=== PATIENT | male | born 1950 | race Caucasian/White ===

== ENCOUNTER 2025-03-05 06:00 | Day surgery (SDC) | payer OTHER ==
[2025-03-01 12:46] VITALS: BP 145/80
[~2025-03-05] VITALS: Ht 165.1 cm; Wt 73.9 kg
[~2025-03-05 06:00] MED LIST: AVAPRO300 MG PO; CARDURA XL4 MG PO; VERELAN PM300 MG
[2025-03-05] MEDS ORDERED: CEFTRIAXONE SODIUM 2,000 MG VIAL ONE (08:19)
[2025-03-05] MEDS ORDERED: METRONIDAZOLE/SODIUM CHLORIDE 500 MG/100 ML PIGGYBACK IV ONE (08:20)
[2025-03-05] MEDS ORDERED: POVIDONE-IODINE 118 ML BOTT TOP ONE (08:38)
[2025-03-05] MEDS ORDERED: DIBUCAINE 30 GM TUBE ONE (08:38)
[2025-03-05] MEDS ORDERED: HEMOSTATIC MATRIX 1 KIT KIT TOP ONE (08:39)
[2025-03-05] MEDS ORDERED: CHLORHEXIDINE GLUCONATE 120 ML BOTTLE TOP ONE (08:53)
[2025-03-05] MEDS ORDERED: TRAM1TAB98 PO (09:55)
[2025-03-05] MEDS ORDERED: NEURONTIN300 MG PO (09:55)
[2025-03-05] MEDS ORDERED: COLACE100 MG PO (09:55)
[2025-03-05] MEDS ORDERED: MORPHINE SULFATE 4 MG/ML VIAL IV ONE (13:40)
== END 2025-03-05 14:40 | disposition home or self-care (01) ==
LOC: CIR.AMB 06:00
PROVIDERS: ATTEND Surgery
DX: K64.4 Residual hemorrhoidal skin tags (principal); K62.89 Other specified diseases of anus and rectum; I10 Essential (primary) hypertension; M19.90 Unspecified osteoarthritis, unspecified site; K59.00 Constipation, unspecified; K21.9 Gastro-esophageal reflux disease without esophagitis